=== PATIENT | female | born 1945 | race Caucasian/White ===

== ENCOUNTER 2023-07-02 01:27 | Emergency (ER) | payer MEDICAID ==
[2023-07-02 03:18] LABS: #Monocytes 0.6 10x3/uL (0.0-1.1); #Neutrophils 7.9 10x3/uL (1.5-8.4); %Basophils 0.2 % (0.0-2.0); %Eosinophils 0.4 % (0.0-6.0); %Lymphocytes 13.3 % (18.0-47.0); %Monocytes 5.7 % (0.0-10.0); %Neutrophils 80.1 % (40.0-75.0); Mean Corpuscular HGB CONC 32.4 g/dL (32.0-36.0); Mean Corpuscular Hemoglobin 28.2 pg (27.0-33.0); Mean Corpuscular Volume 87.2 fl (81.6-98.3); Mean Platelet Volume 11.4 fl (7.4-10.4); Platelet Count 191 10x3/uL (150-450); RBC Distribution Width 16.9 % (11.5-14.5); White Blood Cell (WBC) Count 9.8 10x3/uL (3.5-10.5)
[2023-07-02 03:35] LABS: ALT (SGPT) 14 U/L (8-55); AST (SGOT) 16 U/L (5-34); Albumin 3.8 g/dL (3.4-4.8); Alkaline Phosphatase 71 U/L (40-110); Anion Gap 13 mmol/L (10-20); BUN (Urea Nitrogen) 26 mg/dL (9.8-20.1); Bilirubin, Total 0.3 mg/dL (0.2-1.2); Calc. Creatinine Clearance 0 mL/min (70-130); Carbon Dioxide 20 mmol/L (23-31); Chloride 110 mmol/L (98-107); Estimated GFR 23; Globulin 2.7 g/dL (2.4-3.5); Glucose 122 mg/dL (83-110); Lipase 32 U/L (8-78); Potassium 3.7 mmol/L (3.5-5.1); Protein, Total 6.5 g/dL (5.8-8.1); Sodium 139 mmol/L (136-145)
[2023-07-02] MEDS ORDERED: Ketorolac Tromethamine 30 MG/ML VIAL ONE (04:41)
== END 2023-07-02 06:16 | disposition home or self-care (01) ==
LOC: CSHERS 01:27
DX: R10.11 Right upper quadrant pain (principal); R10.12 Left upper quadrant pain
CPT/HCPCS: 74176; 80053; 83690; 85025; 96374; J1885